=== PATIENT | male | born 1980 | race Two or more races ===

== ENCOUNTER 2020-01-05 17:32 | Emergency (ER) | payer OTHER ==
[~2020-01-05] VITALS: Ht 172.7 cm; Wt 77.3 kg
--- NOTE | 2020-01-05 17:34 | NUR ---
Trauma alert 3.Loredo PA aware.
[2020-01-05] MEDS ORDERED: normal saline 1000ml 1,000 ML IV ONE (17:40)
[2020-01-05] MEDS ORDERED: LORazepam 2 mg/ml vial IV ONE (17:40)
[2020-01-05] MEDS ORDERED: HYDROcodone/acetaminophen 10/325mg tab PO ONE ×2 (17:45→21:25)
[2020-01-05] MEDS ORDERED: morphine 4 MG/ML inj SYRINge IV STA (17:53)
--- NOTE | 2020-01-05 18:00 | NUR ---
patient to xray.
--- NOTE | 2020-01-05 18:07 | NUR ---
patient to xray.
--- NOTE | 2020-01-05 18:08 | NUR ---
[facility] tag number #[id number] [facility]
[2020-01-05 18:21] VITALS: BP 141/89
[2020-01-05] MEDS ORDERED: morphine 4 MG/ML inj SYRINge IV ONE ×2 (18:50→20:40)
[2020-01-05] MEDS ORDERED: ceFAZolin 1GM/D5W- ADD-VANTAGE 50 ML IV ONE (19:10)
[2020-01-05] MEDS ORDERED: TETanus/Pertussis (Acell)/Diphther VAC/PF (Tdap-Adult) 0.5ml syringe IMVAC ONE (19:30)
[2020-01-05] MEDS ORDERED: HYDR-3965 PO (19:41)
[2020-01-05] MEDS ORDERED: CEPH-571 PO (19:41)
[2020-01-05] MEDS ORDERED: morphine 2 MG/ML inj. syringe IV ONE (20:35)
== END 2020-01-05 21:58 | disposition home or self-care (01) ==
LOC: ER 17:33
DX: S82.451A Displaced comminuted fracture of shaft of right fibula, initial encounter for closed fracture (principal); S92.911A Unspecified fracture of right toe(s), initial encounter for closed fracture; M25.571 Pain in right ankle and joints of right foot; M25.551 Pain in right hip; F41.9 Anxiety disorder, unspecified; Z79.2 Long term (current) use of antibiotics; Y93.89 Activity, other specified; Y92.89 Other specified places as the place of occurrence of the external cause; Y99.8 Other external cause status
CPT/HCPCS: 29515; 73502; 73590; 73610; 73630; 90471; 90715; 96365; 96375; 96376; 99284; J0690; J2060; J2270; J7030; 29105